=== PATIENT | female | born 1935 | race Caucasian/White ===

== ENCOUNTER 2016-06-27 07:33 | Day surgery (SDC) | payer OTHER ==
[2016-06-26 16:00] VITALS: BMI 21.7
--- NOTE | 2016-06-27 09:00 | HP ---
History & Physical Update - History History: No Change - Physical Physical: No Change - Assessment Assessment: No Change - Plan Plan: No Change
[2016-06-27] MEDS ORDERED: METHYLENE BLUE 1% 10 MG/1 ML VIAL ONE ×2 (09:07→09:24)
[2016-06-27] MEDS ORDERED: LIDOCAINE HCL 1%, 10 MG/ML (20ML VIAL) ONE (09:24)
[2016-06-27] MEDS ORDERED: PROPOFOL 20 ML ONE (09:50)
[2016-06-27] MEDS ORDERED: MIDAZOLAM HCL 2 MG/2 ML SINGLE DOSE VIAL ONE (09:50)
[2016-06-27] MEDS ORDERED: ceFAZolin SODIUM 1 GM VIAL IVPB ONE (10:20)
[2016-06-27] MEDS ORDERED: ONDANSETRON 4 MG/2 ML VIAL ONE ×3 (10:23→12:07)
[2016-06-27] MEDS ORDERED: PHENYLEPHRINE HCL 10 MG/1 ML SINGLE DOSE VIAL ONE (10:23)
[2016-06-27] MEDS ORDERED: ceFAZolin SODIUM 1 GM VIAL ONE (10:23)
[2016-06-27] MEDS ORDERED: DEXAMETHASONE SOD PHOSPHATE 4 MG/1 ML VIAL ONE (10:23)
[2016-06-27] MEDS ORDERED: BENZOIN/ALOE VERA/STORAX/TOLU 58 ML BOTTLE ONE (11:37)
[2016-06-27] MEDS ORDERED: ZOLPIDEM TARTRATE 5 MG TABLET PO PRN (11:37)
[2016-06-27] MEDS ORDERED: ONDANSETRON 4 MG/2 ML VIAL IVPB PRN (11:37)
[2016-06-27] MEDS ORDERED: DEXTROSE 5%-0.45% SALINE 1,000 ML IV SCH (11:45)
[2016-06-27] MEDS ORDERED: oxyCODONE HCL 5 MG TABLET PO PRN (11:51)
[2016-06-27] MEDS ORDERED: HYDROmorphone HCL CARPU-JECT 1 MG/1 ML DISP.SYRIN IVPB PRN (11:52)
[2016-06-27] MEDS ORDERED: PROMETHAZINE HCL 25 MG/1 ML VIAL IVPUSH PRN (12:10)
[2016-06-27] MEDS ORDERED: ONDANSETRON 4 MG/2 ML VIAL IVPUSH PRN (12:10)
--- NOTE | 2016-06-27 12:12 | OP ---
Operative Note - Note: Operative Date: 06/27/16 Pre-Operative Diagnosis: Carcinoma of left breast Operation: Left total mastectomy, injection of blue dye, sentinel node mapping and sentinel node biopsy. Findings: [place] node identified and sent with pathology specimen. Post-Operative Diagnosis: Same as Pre-op Surgeon: Gricel Mackenzie Follow Up Specialist: Laura Orellana Anesthesia: General Specimens Removed: 1)Left total mastectomy. 2) sentinel lymph node. Estimated Blood Loss (mls): 40 Drains & Tubes with Location: Two JACE drains placed. Operative Report Dictated: Yes
[2016-06-27] MEDS ORDERED: LACTATED RINGERS SOLUTION 1,000 ML IV SCH (12:15)
[2016-06-27] MEDS ORDERED: PROMETHAZINE HCL 25 MG/1 ML VIAL ONE (12:32)
[2016-06-27] MEDS ORDERED: ACETAMINOPHEN INJECTION 100 ML IVPB ONE (17:01)
[2016-06-27] MEDS: ACETAMINOPHEN 1000 MG/100 ML VIAL (NON FORMULARY) IVPB ONE (17:10)
[2016-06-27] MEDS: oxyCODONE HCL 5 MG TABLET PO PRN (22:07)
[2016-06-27] MEDS: ACETAMINOPHEN 325 MG TABLET (FP) PO PRN (22:08)
[2016-06-27] MEDS: HEPARIN NA (PORCINE) 5,000 UNITS/ML 1ML VIAL SQ SCH (22:09)
[2016-06-28] MEDS: HEPARIN NA (PORCINE) 5,000 UNITS/ML 1ML VIAL SQ SCH ×2 (06:23→13:21)
[2016-06-28] MEDS: ACETAMINOPHEN 1000 MG/100 ML VIAL (NON FORMULARY) IVPB ONE (07:36)
[2016-06-28] MEDS: oxyCODONE HCL 5 MG TABLET PO PRN (09:40)
[2016-06-28] MEDS: ACETAMINOPHEN 325 MG TABLET (FP) PO PRN (09:40)
[2016-06-28] MEDS ORDERED: ASPIRIN COATED 81 MG TABLET.EC PO SCH (10:00)
[2016-06-28] MEDS ORDERED: ATENOLOL 25 MG TABLET (FP) PO SCH (10:00)
--- NOTE | 2016-06-28 12:22 | PN ---
Progress Note (short form) - Note Progress Note: Anesthesiology Post-op POD #1 s/p left mastectomy under GA. Pt. c/o pain at operative site. Per RN, she is receiving Oxycodone with reasonable relief. She currently has both 5mg as well as 10mg doses ordered. Otherwise, VSS and no apparent anesthesia- related complications.
[2016-06-28 12:28] VITALS: BP 119/59; PULSE 83; TEMP 98.2
--- NOTE | 2016-06-28 13:27 | PN ---
Progress Note, Physician - Current Medication List Current Medications: Active Medications Acetaminophen (Tylenol -) 650 mg PO Q4H PRN PRN Reason: FEVER Last Admin: 06/28/16 09:40 Dose: 650 mg Aspirin (Ecotrin -) 81 mg PO DAILY [facility] Last Admin: 06/28/16 09:40 Dose: 81 mg Atenolol (Tenormin -) 25 mg PO DAILY [facility] Last Admin: 06/28/16 09:40 Dose: 25 mg Heparin Sodium (Porcine) (Heparin -) 5,000 unit SQ TID [facility] Last Admin: 06/28/16 13:21 Dose: Not Given Hydromorphone HCl (Dilaudid Injection -) 1 mg IVPB Q6H PRN PRN Reason: PAIN LEVEL 6-10 Ondansetron HCl (Zofran Injection) 4 mg IVPB Q6H PRN PRN Reason: NAUSEA AND/OR VOMITING Oxycodone HCl (Roxicodone -) 5 mg PO Q6H PRN PRN Reason: PAIN LEVEL 1-5 Oxycodone HCl (Roxicodone -) 10 mg PO Q6H PRN PRN Reason: PAIN LEVEL 6-10 Last Admin: 06/28/16 09:40 Dose: 10 mg Zolpidem Tartrate (Ambien -) 5 mg PO HS PRN PRN Reason: Insomnia - Objective Vital Signs: Vital Signs Temperature 98.2 F 06/28/16 10:00 Pulse Rate 83 06/28/16 10:00 Respiratory Rate 20 06/28/16 10:00 Blood Pressure 119/59 06/28/16 10:00 O2 Sat by Pulse Oximetry (%) 97 06/28/16 09:00 Assessment/Plan Patient is ready for discharge. He states that the boiler in his apartment is not functional. There is no heat and water. He is unable to go home. Wound is clean. Genitals are normal. Referred to social service/ discharge planning. Patient is medically ready for discharge.
--- NOTE | 2016-06-28 13:36 | PN ---
Progress Note, Physician - Current Medication List Current Medications: Active Medications Acetaminophen (Tylenol -) 650 mg PO Q4H PRN PRN Reason: FEVER Last Admin: 06/28/16 09:40 Dose: 650 mg Aspirin (Ecotrin -) 81 mg PO DAILY [facility] Last Admin: 06/28/16 09:40 Dose: 81 mg Atenolol (Tenormin -) 25 mg PO DAILY [facility] Last Admin: 06/28/16 09:40 Dose: 25 mg Heparin Sodium (Porcine) (Heparin -) 5,000 unit SQ TID [facility] Last Admin: 06/28/16 13:21 Dose: Not Given Hydromorphone HCl (Dilaudid Injection -) 1 mg IVPB Q6H PRN PRN Reason: PAIN LEVEL 6-10 Ondansetron HCl (Zofran Injection) 4 mg IVPB Q6H PRN PRN Reason: NAUSEA AND/OR VOMITING Oxycodone HCl (Roxicodone -) 5 mg PO Q6H PRN PRN Reason: PAIN LEVEL 1-5 Oxycodone HCl (Roxicodone -) 10 mg PO Q6H PRN PRN Reason: PAIN LEVEL 6-10 Last Admin: 06/28/16 09:40 Dose: 10 mg Zolpidem Tartrate (Ambien -) 5 mg PO HS PRN PRN Reason: Insomnia - Objective Vital Signs: Vital Signs Temperature 98.2 F 06/28/16 10:00 Pulse Rate 83 06/28/16 10:00 Respiratory Rate 20 06/28/16 10:00 Blood Pressure 119/59 06/28/16 10:00 O2 Sat by Pulse Oximetry (%) 97 06/28/16 09:00 Assessment/Plan S/P left total mastectomy with sentinel lymph node biopsy. Wound is clean , drains are in place. Discharge home, follow up in my office. Instructions given.
--- NOTE | 2016-06-30 11:23 | OP ---
DATE OF OPERATION: DATE OF DICTATION: 06/27/2016 PREOPERATIVE DIAGNOSIS: Carcinoma of the left breast, lobular carcinoma less than 1 cm in diameter, status post biopsy. Status post right total mastectomy in 2010 , for carcinoma. POSTOPERATIVE DIAGNOSIS: Carcinoma of the left breast, lobular carcinoma less than 1 cm in diameter, status post biopsy. Status post right total mastectomy in 2010 , for carcinoma. PROCEDURE PERFORMED: Left total mastectomy, injection of blue dye, sentinel node mapping, and sentinel node biopsy in the left axilla. SURGEON: Zenon Mackenzie MD TOOL DESIGN CHECKER: DONTE Huffman ANESTHESIA: General anesthesia. INDICATIONS: This 80-year-old woman was diagnosed to have carcinoma in the left breast in the upper outer quadrant on routine mammogram. This was then biopsied and proven to be carcinoma. She has had prior total mastectomy of the right breast for carcinoma in 2010. The surgical options were discussed with the patient. However, she opted for total mastectomy. DESCRIPTION OF PROCEDURE: Methylene blue was injected in the lateral aspect of the left breast, just outside the areola, in the holding area. It was injected intradermally as well as deep into the breast tissue. This was then massaged. Consent was obtained. The risks, benefits and complications were discussed with the patient. The patient was brought to the operating room. General anesthesia was administered. A time-out was called. The left breast and left arm were painted and draped. An elliptical incision, about 10 cm in length, was made around the left areolar complex, with the widest portion in the upper outer quadrant towards the axilla. Superior and inferior skin flaps were then raised, making sure the skin flaps were not very thin nor very thick. This was carried laterally through the subcutaneous fat and superiorly all the way up to the clavicle, inferior/anterior to the rectus sheath, medially all the way to the midline and lateral to the breast towards the axilla. Prior to this a skin incision was made around the elliptical incision and multiple towel clips were placed on either side of the oval-shaped incision. The towel clips were tied with 4 x 4 gauze, thus making this unit 1 single unit of the breast. The towel clip on the outer edge was held to raise a skin flap straight upwards so that the flap can be of adequate size and carried down all the way towards the chest wall. Once the skin flaps were raised, the blue dye was noted in the axilla going through the lymphatics towards the axilla. This was followed all the way to the axillary lymph nodes. The breast tissue was then removed off the pectoralis major muscle, starting in the midline over the sternum, as well as inferiorly over the pectoralis major, and carrying it laterally towards the axilla. The dissection was carried just below the pectoralis fascia. Superiorly it was carried all the way to the clavicle. The breast tissue was removed, carrying this all the way laterally towards the axilla. Once the axilla was reached, the lymphatics were followed towards the axillary lymph nodes and the blue dye was noted within the lymph nodes. These were removed with the specimen as the sentinel nodes as these were the first draining lymph nodes. The specimen consisted of the whole breast from the sternum medially to the clavicle superiorly, inferiorly to the chest wall, going laterally towards the axilla,the breast tissue, anterior to the pectoralis major was excised, along with the sentinel nodes, and identified with sutures and sent to Pathology. The pathologist identified the specimen as well as the sentinel nodes. Hemostasis was then achieved using electrocautery. The wound was irrigated thoroughly, and the skin was approximated with buried interrupted 3-0 Vicryl sutures, taking the subcutaneous fat and the cutis skin. Prior to this, 2 No. 3 JACE drains were left in the wound and brought out, 1 medially through the inferior flap, another one laterally in the axilla through the inferior flap as well. The wound was then closed with interrupted 3-0 Vicryl sutures, as mentioned above, and the skin was approximated with continuous 3-0 Biosyn sutures in a running subcuticular fashion. Dermabond was then applied across the skin edges. The drains were also sutured to the skin and connected to suction. Multiple 4 x 4s were left over the incision in the chest wall, and 4 x 8 gauze was placed, with a surgical bra over it. Estimated blood loss was 40 to 50 mL. Sponge count and instrument count were correct. The flap looked viable and pink. The patient was extubated and sent to the recovery room in satisfactory and stable condition. Marzena [id number] MTDD
--- NOTE | 2016-07-01 14:28 | PATH ---
Surgical Pathology Report Patient Name: JU BERGER [facility]. Rec. #: [id number] /Age/Gender: 1935 (Age: 80) / F Account: [id number] Location: AMBULATORY SURG Taken: 06/27/2016 Received: 06/27/2016 Reported: 07/01/2016 Physicians: Zenon Mackenzie M.D. Specimen(s) Received LEFT BREAST AND SENTINEL LYMPH NODE Clinical History Carcinoma of the left breast Intraoperative Consult Diagnosis Left total mastectomy and sentinel lymph node: [place] lymph node is grossly identified. Dr. Dodd 06/27/16. Final Diagnosis BREAST, LEFT, TOTAL MASTECTOMY: INVASIVE LOBULAR CARCINOMA, NUCLEAR GRADE 1. INVASIVE CARCINOMA SIZE AND FOCALITY: SINGLE FOCUS, 0.9 CM. LOBULAR CARCINOMA IN SITU (LCIS), CLASSICAL TYPE, WITH MICROCALCIFICATIONS, ASSOCIATED WITH INVASIVE CARCINOMA AND IS PRESENT FOCALLY AWAY FROM IT. SURGICAL RESECTION MARGINS: NEGATIVE FOR CARCINOMA; CLOSEST RESECTION MARGIN (DEEP) IS 0.5 CM AWAY FROM CARCINOMA. ASSOCIATED PRIOR BIOPSY SITE PRESENT. LYMPHOVASCULAR INVASION: NOT DEFINITIVELY IDENTIFIED. NIPPLE: NOT INVOLVED BY CARCINOMA. SKIN: NOT INVOLVED BY CARCINOMA. SURROUNDING BREAST TISSUE: FIBROCYSTIC CHANGE WITH FOCAL USUAL DUCT HYPERPLASIA, SCLEROSING ADENOSIS, FOCAL COLUMNAR CELL CHANGE, APOCRINE METAPLASIA, DUCT DILATATION, CYST FORMATION AND STROMAL FIBROSIS AND FOCAL ASSOCIATED MICROCALCIFICATIONS. ONE SENTINEL LYMPH NODE, NEGATIVE FOR METASTATIC CARCINOMA (0/1); TWO ADDITIONAL LYMPH NODES, NEGATIVE FOR METASTATIC CARCINOMA (0/2). PATHOLOGIC STAGING: pT1B pN0 (ALSO REFER TO CHECKLIST BELOW). RECEPTOR STATUS: REFER TO CHECKLIST BELOW. Comment: Immunohistochemical stain for E-cadherin performed and interpreted [facility] on block #12 shows attenuated staining supporting foci of LCIS. Immunohistochemical stains for SMM-HC and p63 performed and interpreted [facility] on block #14 highlights myoepithelial cells supporting foci of adenosis. Immunohistochemical stain for Ae1/Ae3 keratin performed on blocks # 1 and 2 (lymph nodes) are negative, supporting the interpretation above. Comments Breast Invasive Carcinoma: Surgical Pathology Cancer Case Summary Based on AJCC/UICC TNM, 7th edition Procedure _x_ Total mastectomy (including nipple and skin) Lymph Node Sampling __x_ [place] and non-sentinel lymph nodes Specimen Laterality _x_ Left Tumor Size: Size of Largest Invasive Carcinoma Greatest dimension of largest focus of invasion over 1 mm: 0.9 cm (9 mm) Tumor Focality _x_ Single focus of invasive carcinoma Macroscopic and Microscopic Extent of Tumor Skin _x_ Invasive carcinoma does not invade into the dermis or epidermis Nipple _x_ Not involved by carcinoma Skeletal Muscle _x_ No skeletal muscle present Ductal Carcinoma In Situ (DCIS) _x_ No DCIS is present Histologic Type of Invasive Carcinoma: _x_ Invasive lobular carcinoma Histologic Grade: ([place]am Histologic Score) Tubular Differentiation _x_ Score 3 Nuclear Pleomorphism _x_ Score 1 Mitotic Rate _x_ Score 1 Overall Grade _x_ Nor applicable (lobular carcinoma) Margins _x_ Margins uninvolved by invasive carcinoma Distance from closest margin: 5 mm Specify margin: deep Lymph-Vascular Invasion _x_ Not identified Lymph Nodes Total number of lymph nodes examined (sentinel and nonsentinel): 3 Number of sentinel lymph nodes examined: 1 Number of lymph nodes with macrometastases ( > 2 mm): 0 Number of lymph nodes with micrometastases (>0.2 mm to 2 mm and/or >200cells):0 Number of lymph nodes with isolated tumor cells (=0.2 mm and =200 cells): 0 Size of largest metastatic deposit (if present): n/a Extranodal Extension _x_ Not applicable Pathologic Staging (pTNM) Primary Tumor (Invasive Carcinoma): pT1b Regional Lymph Nodes (pN): pN0 Distant Metastasis (pM): not applicable Biomarker Studies Results of ER and CO studies performed on this specimen or prior biopsy ([id number]) at [facility] are as follows: ER (clone [id number] mouse monoclonal antibody by [employer]): 95% nuclear staining with strong intensity (Positive). CO (clone16 mouse monoclonal antibody by [employer]): 10% nuclear staining with moderate intensity (Positive). Results of Her2 (IHC) & Ki-67 studies performed on prior biopsy ([id number]) at [place], [place] ( ET17- 15) are as follows: Her2 IHC (EP3 from [employer], formerly known as [id number], using [employer] Polymer Refine detection kit):1+ (Negative) Ki67:<5% (low proliferation index) Positive and negative controls (internal if applicable) show appropriate results. Formalin fixation and cold ischemic times are within current ASCO/CAP recommendations for ER, CO and Her2 testing. Electronically Signed Dat Dodd M.D. Gross Description Received fresh, labeled "left total mastectomy" is a 370 gram, 16.5 x 16.0 x 3.5 cm left mastectomy specimen with a suture at the upper medial aspect of the skin, per the surgeon. There is an additional suture marking the sentinel lymph node, per the surgeon. The anterior surface displays a 12.0 x 5.5 cm almanza, elliptical portion of skin with a 0.8 cm diameter nipple. The deep margin is inked black and the anterior soft tissue margin is inked blue. The specimen is serially sectioned from medial to lateral. Sectioning reveals a 1.0 x 1.0 x 1.0 cm almanza, firm, ill-defined mass in the upper inner quadrant (UIQ). The mass is surrounded by focally firm fibrous tissue and hemorrhage. The mass is at 0.5 cm from the deep margin. The remaining breast parenchyma displays focally hemorrhagic fibroadipose tissue. There is a 0.7 cm in greatest dimension almanza, irregular lymph node at the site of the suture, designating the sentinel node. There are 2 additional lymph nodes identified averaging 0.5 cm in greatest dimension. Chemical Recovery Operator sections are submitted in 22 cassettes as follows: 1-sentinel lymph node from area of suture; 2-one whole bisected lymph node; 3-one whole lymph node; 4-serially sectioned nipple; 5-subareolar shave; 6-7-one full face section of mass each with deep margin; 7-9-seniejllpu sections of mass; 10-11-UIQ fibrous tissue surrounding mass; 12-14-lower inner quadrant; 75-96-kuwam-outer quadrant; 17-18-lower outer quadrant; 19-retroareolar tissue; 20-anterior soft tissue margin; 21-skin; 22-deep margin. Time to fixation: <1h Total formalin fixation time:~7 h 06/27/201606/27/2016
--- NOTE | 2016-07-02 12:26 | SURG ---
Surgery Bag Tester Note Bag Tester: Laura Orellana PA-C Date of Service: 06/27/16 Diagnosis: Carcinoma of left breast Procedure: Left total mastectomy, injection of blue dye, sentinel node mapping and sentinel node biopsy. I was present for the entirety of the operative procedure. For further detail, please refer to operative report. Visit type - Case Type Case Type: Scheduled Admission - Emergency Emergency Visit: No - New patient This patient is new to me today: No - Critical Care Critical Care patient: No
== END 2016-06-28 14:01 | disposition home health service (06) ==
LOC: JASUSAT 07:33 → J8W 18:30 → JASUSAT 06-28 14:01
PROVIDERS: ATTEND Specialist
PROC: 0HTU0ZZ Resection of Left Breast, Open Approach (ICD-10-PCS; principal; 2016-06-27 09:30)
PROC: 07B60ZX Excision of Left Axillary Lymphatic, Open Approach, Diagnostic (ICD-10-PCS; 2016-06-27 09:30)
DX: C50.912 Malignant neoplasm of unspecified site of left female breast (principal); Z17.0 Estrogen receptor positive status [ER+]
CPT/HCPCS: 88309-TC; 88329; 88341-TC; 88342-TC; 94760; J1644